=== PATIENT | male | born 1955 | race Two or more races ===

== ENCOUNTER 2016-12-20 02:24 | Emergency (ER) | payer MEDICAID ==
[~2016-12-20] VITALS: Ht 180.3 cm; Wt 99.7 kg
[2016-12-20 02:42] VITALS: BP 166/85
== END 2016-12-20 04:41 | disposition home or self-care (01) ==
LOC: ER 02:26
DX: H10.9 Unspecified conjunctivitis (principal); F17.210 Nicotine dependence, cigarettes, uncomplicated
CPT/HCPCS: 99283

== ENCOUNTER 2019-09-05 12:56 | Emergency (ER) | payer MEDICAID, OTHER ==
[~2019-09-05] VITALS: Ht 185.4 cm; Wt 111.0 kg
[2019-09-05 13:55] VITALS: BP 166/98
[2019-09-05] MEDS ORDERED: KETOROLAC 60MG/2ML VIAL IM ONE (14:30)
== END 2019-09-05 16:00 | disposition home or self-care (01) ==
LOC: ER 12:56
DX: L03.115 Cellulitis of right lower limb (principal)
CPT/HCPCS: 73630; 99283; J1885

== ENCOUNTER 2020-08-06 01:05 | Inpatient (IN) | payer SELFPAY ==
[~2020-08-06] VITALS: Ht 180.3 cm; Wt 94.8 kg
[2020-08-06] MEDS ORDERED: SODIUM CHLORIDE 0.9% 1,000 ML IV ONE (01:45)
[2020-08-06] MEDS ORDERED: ONDANSETRON 4MG ODT PO ONE (01:45)
[2020-08-06 02:42] LABS: HEMATOCRIT. 39.8 % (42.0-52.0); MEAN CORPUSCULAR HEMOGLOBIN 29.9 pg (28.0-32.0); MEAN CORPUSCULAR VOLUME 91.6 fL (80.0-94.0); MEAN PLATELET VOLUME 9.4 fl (7.4-10.4); PLATELET 274 x1000/uL (130-400); RED BLOOD CELL COUNT 4.35 mill/uL (4.7-6.1); RED CELL DISTRIBUTION WIDTH 13.5 % (11.6-14.6)
[2020-08-06 02:49] LABS: CHLORIDE 112 mEq/L (98-107)
[2020-08-06] MEDS ORDERED: SODIUM CHLORIDE 0.9% 1000ML BAG (SEPSIS BOLUS) IV NR (03:00)
[2020-08-06] MEDS ORDERED: PIPERACILLIN/TAZ 3.375G PREMIX 50 ML IV NR (03:00)
[2020-08-06] MEDS ORDERED: VANCOMYCIN 1 G PREMIX 200 ML IV NR (03:00)
[2020-08-06] MEDS ORDERED: ONDANSETRON HCL 4MG/2ML INJ IV ONE (03:00)
[2020-08-06] MEDS ORDERED: PANTOPRAZOLE SODIUM 40 MG/VIAL IV ONE (03:00)
[2020-08-06 05:46] LABS: PLATELET ESTIMATE NORMAL
[2020-08-06] MEDS ORDERED: CLONIDINE 0.1MG TABLET PO PRN (09:15)
[2020-08-06] MEDS ORDERED: ACETAMINOPHEN 325MG TABLET PO PRN (09:15)
[2020-08-06] MEDS ORDERED: ONDANSETRON HCL 4MG/2ML INJ IV PRN (09:15)
[2020-08-06] MEDS ORDERED: DIPHENHYDRAMINE 50MG/ML VIAL IV PRN (09:15)
[2020-08-06] MEDS ORDERED: CEFTRIAXONE 1 G PREMIX 50 ML IV SCH (09:15)
[2020-08-06 09:54] LABS: C REACTIVE PROTEIN CARDIAC 5.1 mg/L (0.00-3.00)
[2020-08-06] MEDS: CEFTRIAXONE 1,000 MG in DEXTROSE 5% WATER 50 ML IV SCH (11:00)
[2020-08-06] MEDS: ENOXAPARIN 40MG/0.4ML SYR SUBCUT SCH (11:30)
[2020-08-06] MEDS ORDERED: CEFTRIAXONE SODIUM 1 G/VIAL ONE (14:03)
[2020-08-06] MEDS: METRONIDAZOLE 500 MG PREMIX 100 ML IV SCH ×2 (16:40→22:34)
[2020-08-07] MEDS: METRONIDAZOLE 500 MG PREMIX 100 ML IV SCH ×3 (03:30→15:55)
[2020-08-07 08:48] LABS: BASOPHILS % 0.7 % (0.0-2.0); EOSINOPHILS % 1.6 % (0.0-5.0); HEMATOCRIT. 27.4 % (42.0-52.0); HEMOGLOBIN. 9.2 g/dL (14.0-18.0); LYMPHOCYTES % 25.8 % (20.0-50.0); MEAN CORPUSCULAR HEMOGLOBIN 30.6 pg (28.0-32.0); MEAN CORPUSCULAR VOLUME 91.5 fL (80.0-94.0); MONOCYTES % 11.5 % (2.0-8.0); NEUTROPHILS % 60.4 % (40.0-76.0); PLATELET 161 x1000/uL (130-400); RED BLOOD CELL COUNT 2.99 mill/uL (4.7-6.1); RED CELL DISTRIBUTION WIDTH 13.1 % (11.6-14.6)
[2020-08-07 08:52] LABS: CHLORIDE 112 mEq/L (98-107)
[2020-08-07 09:00] LABS: LDL CHOLESTEROL 80 mg/dL (5-100)
[2020-08-07] MEDS: PANTOPRAZOLE SODIUM 40 MG/VIAL IV SCH (09:00)
[2020-08-07 09:01] LABS: HDL CHOLESTEROL 26 mg/dL (40-59)
[2020-08-07] MEDS: CEFTRIAXONE 1,000 MG in DEXTROSE 5% WATER 50 ML IV SCH (11:00)
[2020-08-07] MEDS: ENOXAPARIN 40MG/0.4ML SYR SUBCUT SCH (11:00)
[2020-08-07] MEDS ORDERED: ENOXAPARIN 80MG/0.8ML SYR SUBCUT SCH (17:30)
[2020-08-08] MEDS: METRONIDAZOLE 500 MG PREMIX 100 ML IV SCH ×3 (03:30→22:02)
[2020-08-08 06:06] VITALS: BP 125/72
[2020-08-08 07:05] LABS: BASOPHILS % 0.7 % (0.0-2.0); EOSINOPHILS % 1.5 % (0.0-5.0); HEMATOCRIT. 27.4 % (42.0-52.0); HEMOGLOBIN. 9.6 g/dL (14.0-18.0); LYMPHOCYTES % 23.3 % (20.0-50.0); MEAN CORPUSCULAR HEMOGLOBIN 31.3 pg (28.0-32.0); MEAN CORPUSCULAR VOLUME 89.1 fL (80.0-94.0); MEAN PLATELET VOLUME 9.4 fl (7.4-10.4); MONOCYTES % 9.4 % (2.0-8.0); NEUTROPHILS % 65.1 % (40.0-76.0); PLATELET 143 x1000/uL (130-400); RED BLOOD CELL COUNT 3.08 mill/uL (4.7-6.1)
[2020-08-08 07:17] LABS: CHLORIDE 105 mEq/L (98-107)
[2020-08-08 07:39] LABS: T4 FREE 1.09 ng/dL (0.76-1.46)
[2020-08-08 08:00] VITALS: BP 105/62
[2020-08-08] MEDS: PANTOPRAZOLE SODIUM 40 MG/VIAL IV SCH (10:31)
[2020-08-08 12:00] VITALS: BP_SYST 96; BP_SYST 97; BP_DIAS 56; BP_DIAS 57
[2020-08-08] MEDS: CEFTRIAXONE 1,000 MG in DEXTROSE 5% WATER 50 ML IV SCH (15:45)
[2020-08-08 16:00] VITALS: BP 96/57
[2020-08-08] MEDS: ENOXAPARIN 40MG/0.4ML SYR SUBCUT SCH (18:00)
[2020-08-08] MEDS ORDERED: DEXTROSE 50% WATER 50ML SYRINGE IV PRN (19:00)
[2020-08-08 19:50] LABS: TOTAL IRON BINDING CAPACITY 306 ug/dL (250-450)
[2020-08-08 20:00] VITALS: BP 100/66
[2020-08-08] MEDS: INSULIN LISPRO 100 UNITS/ML SUBCUT SCH (21:00)
[2020-08-08] MEDS: BLOOD SUGAR DIAGNOSTIC STRIP TEST SCH (21:38)
[2020-08-09] VITALS: BP 103/61
[2020-08-09 04:00] VITALS: BP 95/52
[2020-08-09 05:58] LABS: BASOPHILS % 0.5 % (0.0-2.0); EOSINOPHILS % 1.9 % (0.0-5.0); HEMATOCRIT. 24.1 % (42.0-52.0); HEMOGLOBIN. 8.5 g/dL (14.0-18.0); LYMPHOCYTES % 26.6 % (20.0-50.0); MEAN CORPUSCULAR HEMOGLOBIN 31.2 pg (28.0-32.0); MEAN CORPUSCULAR VOLUME 89.2 fL (80.0-94.0); MEAN PLATELET VOLUME 9.8 fl (7.4-10.4); MONOCYTES % 9.9 % (2.0-8.0); NEUTROPHILS % 61.1 % (40.0-76.0); PLATELET 134 x1000/uL (130-400); RED BLOOD CELL COUNT 2.71 mill/uL (4.7-6.1); RED CELL DISTRIBUTION WIDTH 12.9 % (11.6-14.6)
[2020-08-09 06:19] LABS: CHLORIDE 104 mEq/L (98-107)
[2020-08-09] MEDS: BLOOD SUGAR DIAGNOSTIC STRIP TEST SCH (06:34)
[2020-08-09 08:00] VITALS: BP 101/57
[2020-08-09] MEDS: PANTOPRAZOLE SODIUM 40 MG/VIAL IV SCH (08:45)
[2020-08-09] MEDS: CEFTRIAXONE 1,000 MG in DEXTROSE 5% WATER 50 ML IV SCH (08:45)
[2020-08-09] MEDS: ENOXAPARIN 40MG/0.4ML SYR SUBCUT SCH (08:46)
[2020-08-09] MEDS: INSULIN LISPRO 100 UNITS/ML SUBCUT SCH (08:54)
[2020-08-09 12:00] VITALS: BP 93/53
[2020-08-09 16:00] VITALS: BP 109/66
[2020-08-09] MEDS: SODIUM CHLORIDE 0.9% 1,000 ML IV SCH (16:30)
[2020-08-09 18:15] LABS: HEMATOCRIT 23.7 % (42.0-52.0); HEMOGLOBIN 8.1 g/dL (14.0-18.0)
[2020-08-09 18:21] LABS: INR 1.1; PROTHROMBIN TIME 11.3 sec (9.6-11.0)
[2020-08-09 20:00] VITALS: BP 93/57
[2020-08-10] VITALS: BP 92/47
[2020-08-10 01:03] LABS: HEMATOCRIT 24.4 % (42.0-52.0); HEMOGLOBIN 8.3 g/dL (14.0-18.0)
[2020-08-10 04:00] VITALS: BP 94/48
[2020-08-10 06:34] LABS: CHLORIDE 104 mEq/L (98-107)
[2020-08-10 06:36] LABS: BASOPHILS % 0.6 % (0.0-2.0); HEMATOCRIT. 25.1 % (42.0-52.0); HEMOGLOBIN. 8.6 g/dL (14.0-18.0); LYMPHOCYTES % 23.7 % (20.0-50.0); MEAN CORPUSCULAR HEMOGLOBIN 30.9 pg (28.0-32.0); MEAN CORPUSCULAR VOLUME 90.2 fL (80.0-94.0); MEAN PLATELET VOLUME 10.3 fl (7.4-10.4); MONOCYTES % 11.6 % (2.0-8.0); NEUTROPHILS % 61.1 % (40.0-76.0); PLATELET 148 x1000/uL (130-400); RED BLOOD CELL COUNT 2.78 mill/uL (4.7-6.1); RED CELL DISTRIBUTION WIDTH 13.1 % (11.6-14.6)
[2020-08-10 08:00] VITALS: BP 107/60
[2020-08-10] MEDS: PANTOPRAZOLE SODIUM 40 MG/VIAL IV SCH (09:20)
[2020-08-10] MEDS: CEFTRIAXONE 1,000 MG in DEXTROSE 5% WATER 50 ML IV SCH (09:20)
[2020-08-10 12:00] VITALS: BP 98/59
[2020-08-10] MEDS ORDERED: FENTANYL CITRATE/PF 50MCG/ML 2ML VIAL IV PRN (13:23)
[2020-08-10] MEDS ORDERED: MIDAZOLAM HCL 5 MG/5 ML VIAL IV PRN (13:24)
[2020-08-10] MEDS ORDERED: MIDAZOLAM HCL 5 MG/5 ML VIAL ONE ×2 (13:26→13:27)
[2020-08-10] MEDS ORDERED: FENTANYL CITRATE/PF 50MCG/ML 2ML VIAL ONE (13:27)
[2020-08-10 16:00] VITALS: BP 94/60
[2020-08-10] MEDS: SUCRALFATE 1G TABLET PO SCH ×2 (19:10→21:07)
[2020-08-10 20:00] VITALS: BP 116/62
[2020-08-10] MEDS ORDERED: HYDROCODONE/ACETAMINOPHEN 5/325MG TABLET PO PRN (23:00)
[2020-08-10] MEDS ORDERED: ACETAMINOPHEN 325MG TABLET PO PRN (23:00)
[2020-08-11] VITALS: BP 112/68
[2020-08-11 04:00] VITALS: BP 116/64
[2020-08-11] MEDS: SUCRALFATE 1G TABLET PO SCH ×2 (06:36→12:36)
[2020-08-11 07:51] LABS: CHLORIDE 107 mEq/L (98-107)
[2020-08-11 08:00] VITALS: BP 124/78
[2020-08-11 08:10] LABS: BASOPHILS % 0.7 % (0.0-2.0); EOSINOPHILS % 4.6 % (0.0-5.0); HEMATOCRIT. 24.3 % (42.0-52.0); HEMOGLOBIN. 8.2 g/dL (14.0-18.0); LYMPHOCYTES % 28.5 % (20.0-50.0); MEAN CORPUSCULAR HEMOGLOBIN 30.6 pg (28.0-32.0); MEAN CORPUSCULAR VOLUME 91.1 fL (80.0-94.0); MEAN PLATELET VOLUME 10.4 fl (7.4-10.4); MONOCYTES % 12.5 % (2.0-8.0); NEUTROPHILS % 53.7 % (40.0-76.0); PLATELET 171 x1000/uL (130-400); RED BLOOD CELL COUNT 2.67 mill/uL (4.7-6.1); RED CELL DISTRIBUTION WIDTH 13.2 % (11.6-14.6)
[2020-08-11] MEDS: CEFTRIAXONE 1,000 MG in DEXTROSE 5% WATER 50 ML IV SCH (08:54)
[2020-08-11] MEDS: PANTOPRAZOLE SODIUM 40 MG/VIAL IV SCH (08:54)
[2020-08-11] MEDS: SODIUM CHLORIDE 0.9% 1,000 ML IV SCH (08:54)
[2020-08-11 12:00] VITALS: BP 130/79
[2020-08-11] MEDS ORDERED: FAMO-135 MT (12:32)
[2020-08-11] MEDS ORDERED: SUCR1TAB30 PO (12:32)
[2020-08-11 13:57] VITALS: BP 134/72
[2020-08-11 16:00] VITALS: BP 137/74
== END 2020-08-11 16:20 | disposition home or self-care (01) | DRG 720 ==
LOC: ER 01:17 → MICUSO 03:33 → ENRESERV 08-07 16:24 → CANRESERV 08-07 16:24 → ENRESERV 08-08 00:24 → 6EST 08-08 00:51
PROVIDERS: ADMIT Internal Medicine; ATTEND Internal Medicine
PROC: 0DB68ZX Excision of Stomach, Via Natural or Artificial Opening Endoscopic, Diagnostic (ICD-10-PCS; principal; 2020-08-10)
DX: A41.9 Sepsis, unspecified organism (principal); D64.9 Anemia, unspecified; D72.810 Lymphocytopenia; E86.0 Dehydration; E87.0 Hyperosmolality and hypernatremia; F17.210 Nicotine dependence, cigarettes, uncomplicated; K29.71 Gastritis, unspecified, with bleeding; Z20.828 Contact with and (suspected) exposure to other viral communicable diseases; E66.3 Overweight; Z68.29 Body mass index [BMI] 29.0-29.9, adult
CPT/HCPCS: 36415; 71045; 80048; 80053; 80061; 82270; 82728; 82962; 83036; 83540; 83550; 83615; 84132; 84145; 84439; 84443; 84481; 85014; 85018; 85025; 85379; 86141; 86850; 86900; 87426; 87635; 88305; 88313; 93005; 99291; C1893; C9113; J0696; J1650; J1815; J2250; J2405; J2543; J3010; J3370; J3490; J7030; J7060; Q0162

== ENCOUNTER 2024-02-29 19:49 | Emergency (ER) | payer MEDICAID, MEDICARE ==
[~2024-02-29] VITALS: Ht 180.3 cm; Wt 113.0 kg
[~2024-02-29 19:49] MED LIST: FAMO-135 MT; SUCR1TAB30 PO
[2024-02-29 20:06] VITALS: O2SAT 96
[2024-02-29 22:03] VITALS: BP 178/90; PULSE 62; RESP 20; TEMP 98
[2024-02-29] MEDS: TETANUS, DIPHTHERIA, PERTUSSIS VAC/PF 0.5ML (>10YR OLD) IM ONE (22:03)
== END 2024-02-29 22:05 | disposition home or self-care (01) ==
LOC: ER 19:49
DX: S99.821A Other specified injuries of right foot, initial encounter (principal); M79.671 Pain in right foot; E11.9 Type 2 diabetes mellitus without complications; I10 Essential (primary) hypertension; W22.8XXA Striking against or struck by other objects, initial encounter; Y93.89 Activity, other specified; Y92.89 Other specified places as the place of occurrence of the external cause; Y99.8 Other external cause status
CPT/HCPCS: 73630; 90471; 90715; 99283

== ENCOUNTER 2025-04-15 22:30 | Inpatient (IN) | payer MEDICARE, MEDICAID ==
[~2025-04-15] VITALS: Ht 180.3 cm; Wt 107.5 kg
[~2025-04-15 22:30] MED LIST changes: +ASPI-1406 PO; +ATOR20TA PO; +CLOP-31 PO; +LOSA50TA41 PO
[2025-04-15 22:42] VITALS: O2SAT 99
[2025-04-15 23:36] LABS: BASOPHILS % 0.8 % (0.0-2.0); EOSINOPHILS % 3.2 % (0.0-5.0); HEMATOCRIT. 42.9 % (42.0-52.0); HEMOGLOBIN. 14.5 g/dL (14.0-18.0); LYMPHOCYTES % 23.4 % (20.0-50.0); MEAN PLATELET VOLUME 10.0 fl (7.4-10.4); MONOCYTES % 12.1 % (2.0-8.0); NEUTROPHILS % 60.5 % (40.0-76.0); PLATELET 133 x1000/uL (130-400); RED BLOOD CELL COUNT 4.68 mill/uL (4.7-6.1); RED CELL DISTRIBUTION WIDTH 13.2 % (11.6-14.6)
[2025-04-15 23:38] LABS: CREATININE 0.9 mg/dL (0.6-1.3)
[2025-04-15 23:39] LABS: UREA NITROGEN BLOOD 11 mg/dL (9-23)
[2025-04-15 23:49] LABS: TROPONIN I HIGH SENSITIVITY 888 ng/L (3.0-53)
[2025-04-16] VITALS (9 sets, daily range): BP systolic 118–135; BP diastolic 72–75; PULSE 65–77; RESP 16–35; TEMP 36.7–37.1408; O2SAT 96–99
[2025-04-16 01:48] LABS: TROPONIN I HIGH SENSITIVITY 1064 ng/L (3.0-53)
[2025-04-16] MEDS ORDERED: HEPARIN 5000 UNITS/ML VIAL IV STA (01:51)
[2025-04-16] MEDS ORDERED: HEPARIN 25,000 UNITS PREMIX 250 ML IV PRN (02:00)
[2025-04-16 02:28] LABS: INR 1.1
[2025-04-16] MEDS: HEPARIN 60 UNITS/KG BOLUS IV SCH (03:00)
[2025-04-16] MEDS: HEPARIN 25,000 UNITS PREMIX 250 ML IV SCH (03:03)
[2025-04-16 03:05] LABS: TROPONIN I HIGH SENSITIVITY 1117 ng/L (3.0-53)
[2025-04-16] MEDS ORDERED: HEPARIN BOLUS PRN aPTT 30-44 IV (09:00)
[2025-04-16] MEDS ORDERED: HEPARIN BOLUS PRN aPTT <30 IV (09:00)
[2025-04-16] MEDS ORDERED: IPRATROPIUM/ALBUTEROL 0.5-3(2.5)MG/3ML NEB HHN PRN (09:15)
[2025-04-16] MEDS ORDERED: ONDANSETRON HCL 4MG/2ML INJ IV PRN (09:15)
[2025-04-16] MEDS ORDERED: DOCUSATE SODIUM 100MG CAPSULE PO PRN (09:15)
[2025-04-16] MEDS ORDERED: CLONIDINE 0.1MG TABLET PO PRN (09:15)
[2025-04-16] MEDS ORDERED: ACETAMINOPHEN 325MG TABLET PO PRN ×2 (09:15)
[2025-04-16] MEDS ORDERED: CLOPIDOGREL 75MG TABLET PO SCH (09:30)
[2025-04-16] MEDS ORDERED: ASPIRIN 81MG EC TABLET PO SCH (09:30)
[2025-04-16] MEDS ORDERED: FAMOTIDINE(NEO) 1MG/ML SUSP PO SCH (09:30)
[2025-04-16 09:44] LABS: TROPONIN I HIGH SENSITIVITY 775 ng/L (3.0-53)
[2025-04-16 10:20] LABS: BASOPHILS % 0.5 % (0.0-2.0); EOSINOPHILS % 3.9 % (0.0-5.0); HEMATOCRIT. 42.2 % (42.0-52.0); HEMOGLOBIN. 14.3 g/dL (14.0-18.0); LYMPHOCYTES % 23.6 % (20.0-50.0); MEAN PLATELET VOLUME 9.7 fl (7.4-10.4); MONOCYTES % 9.6 % (2.0-8.0); NEUTROPHILS % 62.4 % (40.0-76.0); PLATELET 109 x1000/uL (130-400); RED BLOOD CELL COUNT 4.57 mill/uL (4.7-6.1); RED CELL DISTRIBUTION WIDTH 13.1 % (11.6-14.6)
[2025-04-16 10:28] LABS: CREATININE 0.8 mg/dL (0.6-1.3); UREA NITROGEN BLOOD 9 mg/dL (9-23)
[2025-04-16 10:30] LABS: ASPARTATE AMINOTRANSFERASE 41 IU/L (<34); BILIRUBIN TOTAL 1.1 mg/dL (0.1-1.0); PROTEIN TOTAL 7.6 g/dL (6.0-8.3)
[2025-04-16] MEDS: FAMOTIDINE 20MG TABLET PO SCH (11:06)
[2025-04-16] MEDS: CLOPIDOGREL 75MG TABLET PO SCH (11:06)
[2025-04-16] MEDS: ASPIRIN 81MG TABLET PO SCH (11:06)
[2025-04-16] MEDS: SUCRALFATE 1G TABLET PO SCH (12:30)
[2025-04-16] MEDS ORDERED: ATORVASTATIN CALCIUM 40MG TABLET PO SCH (21:00)
[2025-04-16] MEDS ORDERED: ATORVASTATIN CALCIUM 20MG TABLET PO SCH (21:00)
[2025-04-17] MEDS ORDERED: LOSARTAN 50 MG TABLET PO SCH (09:00)
== END 2025-04-16 19:15 | disposition home or self-care (01) | DRG 281 ==
LOC: ER 22:30 → 5EST 04-16 01:54 → EDBEDREQTM 04-16 02:01 → EDBEDREQ 04-16 02:01 → EDBEDREQSVC 04-16 02:01 → ENRESERV 04-16 03:27
PROVIDERS: ADMIT Internal Medicine; ATTEND Internal Medicine
DX: I25.10 Atherosclerotic heart disease of native coronary artery without angina pectoris (principal); I50.22 Chronic systolic (congestive) heart failure; I21.A1 Myocardial infarction type 2; I11.0 Hypertensive heart disease with heart failure; D72.821 Monocytosis (symptomatic); E11.9 Type 2 diabetes mellitus without complications; E66.9 Obesity, unspecified; D72.829 Elevated white blood cell count, unspecified; M25.562 Pain in left knee; M25.561 Pain in right knee; H92.02 Otalgia, left ear; M25.512 Pain in left shoulder; M25.511 Pain in right shoulder; Z68.33 Body mass index [BMI] 33.0-33.9, adult; Z87.11 Personal history of peptic ulcer disease; Z95.5 Presence of coronary angioplasty implant and graft; Z79.02 Long term (current) use of antithrombotics/antiplatelets
CPT/HCPCS: 36415; 71045; 73030; 73562; 80048; 80053; 84484; 85025; 93005; 99291; J1644